=== PATIENT | female | born 1940 | race Caucasian/White ===

== ENCOUNTER → 2016-07-22 | Outpatient (CLI) | payer MEDICARE, OTHER ==
[~2016-07-22] MED LIST: AMLO5TAB2 PO; ASPI-496 PO; ATOR40TA78 PO; EZET10TA3 PO; LEVO150T5 PO; OLME40TA PO
== END | disposition home or self-care (01) ==
LOC: CFH 10:22
PROVIDERS: ATTEND Orthopaedic Surgery Orthopaedic Surgery of the Spine
DX: Z13.820 Encounter for screening for osteoporosis (principal); M81.0 Age-related osteoporosis without current pathological fracture
CPT/HCPCS: 77080

== ENCOUNTER 2018-05-11 11:06 | Emergency (ER) | payer MEDICARE, OTHER ==
[~2018-05-11] VITALS: Ht 160 cm; Wt 61.0 kg
[~2018-05-11 11:06] MED LIST changes: +AMLO-150 PO; -AMLO5TAB2 PO; +EZET10TA18 PO; -EZET10TA3 PO; -OLME40TA PO; +OLME40TA12 PO
[2018-05-11 11:09] VITALS: BP 124/78
--- NOTE | 2018-05-11 11:42 | NUR ---
FROM LOBBY TO ROOM AT THIS TIME
[2018-05-11 11:49] LABS: ALBUMIN 4.4 g/dL (3.4-5.0); ANION GAP 6 mmol/L (5-15); CALCIUM 9.6 mg/dL (8.5-10.1); CHLORIDE 90 mmol/L (98-107); CREATININE 0.86 mg/dL (0.55-1.02)
[2018-05-11 11:50] LABS: BASOPHILS # (AUTO) 0.04 x10^3/uL (0-0.1); BASOPHILS % (AUTO) 1 % (0-1); EOSINOPHILS # (AUTO) 0.08 x10^3/uL (0-0.4); EOSINOPHILS % (AUTO) 1 % (1-7); LYMPHOCYTES # (AUTO) 1.91 x10^3/uL (1-3.4); LYMPHOCYTES % (AUTO) 31 % (22-44); MD NO; MEAN CORPUSCULAR HEMOGLOBIN 32.4 pg (27.0-34.8); MEAN CORPUSCULAR HGB CONC 33.6 g/dL (32.4-35.8); MEAN CORPUSCULAR VOLUME 96.3 fL (80-100); MEAN PLATELET VOLUME 7.8 fL (7.4-10.4); MONOCYTES # (AUTO) 0.75 x10^3/uL (0.2-0.8); MONOCYTES % (AUTO) 12 % (2-9); NEUTROPHILS # (AUTO) 3.38 x10^3/uL (1.8-6.8); NEUTROPHILS % (AUTO) 55 % (42-75); PLATELET COUNT 416 x10^3/uL (130-400); RED BLOOD COUNT 4.04 x10^6/uL (3.82-5.3); RED CELL DISTRIBUTION WIDTH 13.4 % (9.6-15.2)
--- NOTE | 2018-05-11 12:00 | NUR ---
PT ARRIVES FROM HOME TODAY AFTER HAVING SOME CONCERNING SYMPTOMS YESTERDAY AFTER HER HUSBANDS DINNER. PTS REPORTS THAT WHEN THEY GOT HOME HIS HAD A EPISODE OF VOMITTING AND THEN WAS UNSTEADY ON HER FEET, BUT HAD CLEAR SPEECH AND KNEW WHERE SHE WAS. REPORTS THAT THIS MORNING SHE DID NOT KNOW WHERE SHE WAS. HAD TO REORIENT. PT HERE IN THE ED IS A/OX4 AND AMBULATED ABOUT 150 FEET TO ROOM WITHOUT DIFFICULTY. PT PLACED IN BED AND AWAITING FURTHER ORDERS. THIS RN DOES NO SUSPECT A STROKE AT THIS TIME.
--- NOTE | 2018-05-11 13:52 | NUR ---
TASK RN: DC EDUCATION PROVIDED, PT DEMONSTRATES UNDERSTANDING. PT AMBULATED STEADILY TO DC WITH RN AND SO
== END 2018-05-11 13:54 | disposition home or self-care (01) ==
LOC: ED 13:45
DX: R51 Headache (principal); E87.1 Hypo-osmolality and hyponatremia; H53.8 Other visual disturbances
CPT/HCPCS: 36415; 70450; 80048; 82040; 85025; 93005; 99284

== ENCOUNTER 2018-05-14 15:15 | Inpatient (IN) | payer MEDICARE, OTHER ==
[~2018-05-14] VITALS: Ht 157.5 cm; Wt 57.6 kg
--- NOTE | 2018-05-14 16:10 | NUR ---
PT TO ED FOR N/V X1 DAY AND CONFUSTION X1.5 WEEKS. PT CONFUSED AND PT'S HERE TO ANSWER QUESTIONS. CONNECTED TO ALL MONITORS. HTN, ALL OTHER VSS. MD TO BEDSIDE FOR ASSESEMTN. ORDERS RECEVIED. LAB AT BEDSIDE. IV ESTABLISHED. AWAITING RESULTS AT THIS TIME. CALL LIGHT WITHIN REACH.
[2018-05-14] MEDS ORDERED: IRON PO (16:17)
[2018-05-14] MEDS ORDERED: TRAM50TA2 PO (16:17)
[2018-05-14] MEDS ORDERED: SODIUM CHLORIDE FLUSH 10ML SYR IVF ONE (16:30)
[2018-05-14 16:31] LABS: BASOPHILS # (AUTO) 0.06 x10^3/uL (0-0.1); BASOPHILS % (AUTO) 1 % (0-1); EOSINOPHILS # (AUTO) 0.08 x10^3/uL (0-0.4); EOSINOPHILS % (AUTO) 1 % (1-7); LYMPHOCYTES % (AUTO) 19 % (22-44); MD NO; MEAN CORPUSCULAR HEMOGLOBIN 31.9 pg (27.0-34.8); MEAN CORPUSCULAR VOLUME 96.6 fL (80-100); MEAN PLATELET VOLUME 7.7 fL (7.4-10.4); MONOCYTES # (AUTO) 1.04 x10^3/uL (0.2-0.8); MONOCYTES % (AUTO) 10 % (2-9); NEUTROPHILS % (AUTO) 70 % (42-75); PLATELET COUNT 429 x10^3/uL (130-400); RED CELL DISTRIBUTION WIDTH 13.1 % (9.6-15.2)
[2018-05-14 16:33] LABS: INTERNATIONAL NORMALIZED RATIO 1.03 (0.93-1.1); PROTHROMBIN TIME 10.9 Seconds (9.6-11.5)
[2018-05-14 16:34] LABS: ALANINE AMINOTRANSFERASE 24 U/L (12-78); ALBUMIN 4.8 g/dL (3.4-5.0); ANION GAP 11 mmol/L (5-15); CHLORIDE 90 mmol/L (98-107)
--- NOTE | 2018-05-14 16:37 | NUR ---
iv placed. labs drawn. call light within reach. family at bedside. awaiting test result and dispo.
[2018-05-14 16:43] LABS: ALKALINE PHOSPHATASE 69 U/L (45-117); BILIRUBIN,TOTAL 0.4 mg/dL (0.2-1.0); CREATININE 0.75 mg/dL (0.55-1.02); FREE T4 (FREE THYROXINE) 1.24 ng/dL (0.76-1.46); TOTAL PROTEIN 8.6 g/dL (6.4-8.2)
[2018-05-14 16:46] LABS: ACETAMINOPHEN < 2 mcg/mL (10-30)
--- NOTE | 2018-05-14 16:51 | NUR ---
eitan santos collected and sent.
[2018-05-14 16:54] LABS: MICROSCOPIC NOT IND
[2018-05-14 16:59] LABS: CULTURE INDICATED? NO
--- NOTE | 2018-05-14 17:09 | NUR ---
PT RESTING IN ROOM WITH FAMILY AT BEDSIDE. AWAITING UTOX RESULTS AT THIS TIME. CALL LIGHT WITHIN REACH. VSS. NO NEEDS AT THIS TIME.
[2018-05-14 17:12] LABS: AMPHETAMINE SCREEN, URINE Negative (Negative); BARBITURATE SCREEN, URINE Negative (Negative); BENZODIAZEPINE SCREEN, URINE Negative (Negative); CANNABINOID SCREEN, URINE Negative (Negative); COCAINE SCREEN, URINE Negative (Negative); METHADONE SCREEN, URINE Negative (Negative); OPIATE SCREEN, URINE Negative (Negative)
[2018-05-14] MEDS ORDERED: IBUPROFEN 600 MG TABLET ONE (18:26)
--- NOTE | 2018-05-14 18:28 | NUR ---
LUNCH RN: HOSPITALIST AT BEDSIDE FOR ASSESSMENT. PT MEDICATED WITH 600MG MOTRIN PER VERBAL ORDER FROM NAIDA.
--- NOTE | 2018-05-14 18:35 | NUR ---
TRACEY RN: REPORT GIVEN TO NEERAJ REID, PT READY FOR TRANSPORT
[2018-05-14] MEDS ORDERED: IBUPROFEN 600 MG TABLET PO ONE (19:00)
[2018-05-14 21:00] VITALS: BP 159/94
[2018-05-14 21:24] VITALS: BP 159/94
[2018-05-14] MEDS ORDERED: POTASSIUM CHLORIDE 10 MEQ in SODIUM CHLORIDE 0.9% 1,000 ML IV SCH (22:14)
[2018-05-15] MEDS ORDERED: DIPHENHYDRAMINE 50 MG CAPSULE PO PRN
[2018-05-15] MEDS ORDERED: ONDANSETRON 2MG/ML, 2ML IVPush PRN
[2018-05-15 02:00] VITALS: BP 134/86
[2018-05-15 06:51] VITALS: BP 155/83
[2018-05-15] MEDS ORDERED: ATORVASTATIN 40 MG TABLET PO SCH (09:00)
[2018-05-15] MEDS ORDERED: EZETIMIBE 10 MG TABLET PO SCH (09:00)
[2018-05-15] MEDS ORDERED: LEVOTHYROXINE 150 MCG TABLET PO SCH (09:00)
[2018-05-15] MEDS ORDERED: FERROUS SULFATE 325 MG TABLET PO SCH (09:00)
[2018-05-15] MEDS ORDERED: ASPIRIN 81 MG TABLET EC PO SCH (09:00)
[2018-05-15] MEDS ORDERED: AMLODIPINE 5 MG TABLET PO SCH (09:00)
[2018-05-15] MEDS ORDERED: LEVOTHYROXINE 50 MCG TABLET ONE (09:29)
[2018-05-15] MEDS ORDERED: HEPARIN 5,000 UNITS/ML, 1ML SQ SCH (10:00)
[2018-05-15 10:05] LABS: BASOPHILS # (AUTO) 0.08 x10^3/uL (0-0.1); BASOPHILS % (AUTO) 1 % (0-1); EOSINOPHILS # (AUTO) 0.07 x10^3/uL (0-0.4); EOSINOPHILS % (AUTO) 1 % (1-7); LYMPHOCYTES % (AUTO) 32 % (22-44); MD NO; MEAN CORPUSCULAR HEMOGLOBIN 32.7 pg (27.0-34.8); MEAN CORPUSCULAR HGB CONC 34.3 g/dL (32.4-35.8); MEAN CORPUSCULAR VOLUME 95.3 fL (80-100); MEAN PLATELET VOLUME 7.6 fL (7.4-10.4); MONOCYTES # (AUTO) 0.82 x10^3/uL (0.2-0.8); MONOCYTES % (AUTO) 12 % (2-9); NEUTROPHILS # (AUTO) 3.55 x10^3/uL (1.8-6.8); NEUTROPHILS % (AUTO) 54 % (42-75); PLATELET COUNT 407 x10^3/uL (130-400); RED BLOOD COUNT 3.87 x10^6/uL (3.82-5.3); RED CELL DISTRIBUTION WIDTH 13.1 % (9.6-15.2)
[2018-05-15 10:14] LABS: ANION GAP 8 mmol/L (5-15); CALCIUM 9.3 mg/dL (8.5-10.1); CHLORIDE 95 mmol/L (98-107); CREATININE 0.71 mg/dL (0.55-1.02)
[2018-05-15 13:08] VITALS: BP 154/92
[2018-05-15] MEDS ORDERED: POTASSIUM CHLORIDE 10 MEQ in SODIUM CHLORIDE 0.9% 1,000 ML IV SCH (22:14)
== END 2018-05-15 14:32 | disposition home or self-care (01) | DRG 71 ==
LOC: ED 17:31 → EDIP 18:10 → 5SO 18:55
PROVIDERS: ADMIT Internal Medicine; ATTEND Internal Medicine
DX: G93.41 Metabolic encephalopathy (principal); E87.1 Hypo-osmolality and hyponatremia; F03.90 Unspecified dementia, unspecified severity, without behavioral disturbance, psychotic disturbance, mood disturbance, and anxiety; E78.5 Hyperlipidemia, unspecified; E03.9 Hypothyroidism, unspecified; I10 Essential (primary) hypertension; Z87.891 Personal history of nicotine dependence; E87.6 Hypokalemia; Z96.642 Presence of left artificial hip joint
CPT/HCPCS: 36415; 80048; 80053; 80307; 80329; 81003; 82140; 83735; 84439; 84443; 85025; 85610; 85730; 87040; 93005; 99285; G0378; J1644; J3480; G0480; J7030